=== PATIENT | male | born 1995 | race African-American/Black ===

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

== ENCOUNTER 2017-09-09 07:20 | Emergency (ER) | payer OTHER ==
[~2017-09-09] VITALS: Ht 180.3 cm; Wt 72.6 kg
[~2017-09-09 07:20] MED LIST changes: +TRAMADOL HCL50 M1 PO
--- NOTE | 2017-09-09 07:37 | ED GENERAL ADULT ---
History of Present Illness General Chief Complaint: Abdominal Pain/Flank Pain Stated Complaint: ABD PAIN Source: patient Exam Limitations: no limitations Vital Signs & Intake/Output Vital Signs & Intake/Output Vital Signs Date Time Temp Pulse Resp B/P B/P Pulse O2 O2 Flow FiO2 Mean Ox Delivery Rate 09/09 0907 98.8 60 18 124/68 97 Room Air 09/09 0822 Room Air 09/09 0724 96.6 73 15 124/74 95 Room Air Room Air Allergies Coded Allergies: No Known Allergies (09/09/17) Reconcile Medications Albuterol Sulfate (Proair Hfa) 90 MCG HFA.AER.AD 2 PUF INH Q4-6 PRN PRN SOB Ibuprofen 800 MG TABLET 1 TAB PO TID PRN PAIN Mometasone Furoate (Nasonex) 50 MCG SPRAY.PUMP 2 SPRAY NASB DAILY PRN CONGESTION Tramadol HCl 50 MG TABLET 1-2 TAB PO TID PRN PAIN TWENTY...[id number] Triage Note: PT TO ED FOR C/C OF DIFFUSE UPPER ABD PAIN WITH NAUSEA. PAIN IS WORSE AFTER EATING. DENIES DIARRHEA. Triage Nurses Notes Reviewed? yes Onset: Abrupt Duration: day(s): Timing: recent history HPI: 09/09/17 21-year-old male presents to the emergency department complaining of nausea, diarrhea, cough, and generalized abdominal pain. He says other family members are sick. He admits to nasal congestion. He denies vomiting. Past History Travel History Traveled to [place] past 21 day No Medical History Any Pertinent Medical History? 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 No Review of Systems Review of Systems Constitutional: Reports: fever. EENTM: Reports: nasal congestion. Respiratory: Reports: cough. Denies: short of breath. Cardiovascular: Denies: chest pain. GI: Reports: abdominal pain, diarrhea. Denies: vomiting. Genitourinary: Reports: no symptoms. Musculoskeletal: Reports: no symptoms. Skin: Denies: rash. Neurological/Psychological: Reports: no symptoms. Hematologic/Endocrine: Reports: no symptoms. Physical Exam Physical Exam General Appearance: well developed/nourished, alert, awake, anxious, moderate distress Head: atraumatic, normal appearance Eyes: Bilateral: normal appearance, PERRL, EOMI. Ears, Nose, Throat: normal pharynx, normal ENT inspection Neck: normal inspection, supple, full range of motion Respiratory: normal breath sounds, chest non-tender, no respiratory distress Cardiovascular: regular rate/rhythm Peripheral Pulses: 4+ radial (R), 4+ radial (L) Gastrointestinal: non-tender Back: normal range of motion Extremities: no edema Neurologic/Psych: no motor/sensory deficits, awake, alert, oriented x 3 Skin: intact, normal color, warm/dry Core Measures ACS in differential dx? No CVA/TIA Diagnosis: No Sepsis Present: No Sepsis Focused Exam Completed? No Progress Differential Diagnoses I considered the following diagnoses in my evaluation of the patient: Plan of Care: Orders Procedure Date/time Status Saline Lock 09/09 0749 Active HIGH SENSITIVITY CRP 09/09 0749 Complete COMPREHENSIVE METABOLIC PANEL 09/09 0749 Complete CBC WITHOUT DIFFERENTIAL 09/09 0749 Complete RAPID VIRAL INFLUENZA A 09/09 0737 Complete Laboratory Tests 09/09/17 0815: Anion Gap 10, Estimated GFR > 60, BUN/Creatinine Ratio 17.5, Glucose 92, Calcium 9.8, Total Bilirubin 0.6, AST 19, ALT 24, Alkaline Phosphatase 53, C-React Prot High Sens 0.3 L, Total Protein 6.9, Albumin 4.4, Globulin 2.5, Albumin/Globulin Ratio 1.8, CBC w Diff NO MAN DIFF REQ, RBC 4.92, MCV 89.0, MCH 30.0, MCHC 33.7, RDW 13.7, MPV 9.1, Gran % 64.0, Lymphocytes % 25.0, Monocytes % 6.8, Eosinophils % 3.5, Basophils % 0.7, Absolute Granulocytes 3.6, Absolute Lymphocytes 1.4, Absolute Monocytes 0.4, Absolute Eosinophils 0.2, Absolute Basophils 0 Microbiology 09/09 0804 NASOPHARYN: Influenza Virus A & B Rapid Smear - COMP Initial ED EKG: none Departure Departure Disposition: HOME OR SELF CARE Condition: Stable Clinical Impression Primary Impression: Abdominal pain Secondary Impressions: Viral syndrome Referrals: Thaddeus ARAMBULA,Sean C. (PCP/Family) Departure Forms: Customer Survey General Discharge Information Comments 09/09/17 The patient's labs are completely unremarkable. His abdomen is soft and nontender. He likely has a viral syndrome. Discharge exclusion was given for appendicitis, he will return to the emergency department if his abdominal pain returns. Critical Care Note Critical Care Note Critical Care Time: non-applicable
[2017-09-09 08:37] LABS: ABSOLUTE BASOPHIL COUNT 0 /CUMM (0.0-0.2); ABSOLUTE EOSINOPHIL COUNT 0.2 /CUMM (0.0-0.7); ABSOLUTE GRANULOCYTE CT 3.6 /CUMM (1.4-6.5); ABSOLUTE LYMPH COUNT 1.4 /CUMM (1.2-3.4); ABSOLUTE MONOCYTE COUNT 0.4 /CUMM (0.10-0.60); BASOPHIL % 0.7 % (0.0-2.0); EOSINOPHIL % 3.5 % (0-5); HEMATOCRIT 43.8 % (42-52); MEAN CORPUSCULAR HGB CONC 33.7 G/DL (33.0-37.0); MEAN PLATELET VOLUME 9.1 FL (7.4-10.4); PLATELET COUNT 203 /CUMM (130-400); RBC DISTRIBUTION WIDTH 13.7 % (11.5-14.5); RED BLOOD CELL CT 4.92 /CUMM (4.70-6.10); WHITE BLOOD CELL COUNT 5.6 /CUMM (4.8-10.8)
[2017-09-09 09:07] VITALS: BP 124/68
== END 2017-09-09 09:45 ==
LOC: ERH 07:20
PROVIDERS: Emergency Medicine
DX: B34.9 Viral infection, unspecified (principal); R10.84 Generalized abdominal pain
CPT/HCPCS: 87804; 87804-59

== ENCOUNTER 2017-11-09 20:57 | Emergency (ER) | payer OTHER ==
[~2017-11-09] VITALS: Ht 180.3 cm; Wt 72.6 kg
[2017-11-09 21:07] VITALS: BP 129/80
--- NOTE | 2017-11-09 21:10 | ED THROAT/DENTAL COMPLAINT ---
History of Present Illness General Chief Complaint: General Adult Stated Complaint: "SINUS INFECTION" Source: patient Exam Limitations: no limitations Vital Signs & Intake/Output Vital Signs & Intake/Output Vital Signs Date Time Temp Pulse Resp B/P B/P Pulse O2 O2 Flow FiO2 Mean Ox Delivery Rate 11/09 2107 99.9 79 18 129/80 97 Room Air Allergies Coded Allergies: No Known Allergies (09/09/17) Reconcile Medications Albuterol Sulfate (Proair Hfa) 90 MCG HFA.AER.AD 2 PUF INH Q4-6 PRN PRN SOB Ibuprofen 800 MG TABLET 1 TAB PO TID PRN PAIN Mometasone Furoate (Nasonex) 50 MCG SPRAY.PUMP 2 SPRAY NASB DAILY PRN CONGESTION Tramadol HCl 50 MG TABLET 1-2 TAB PO TID PRN PAIN TWENTY...[id number] Triage Nurses Notes Reviewed? yes HPI: 21M no PMH, non-smoker, presents with 3 days of sore throat, maxillary and frontal sinus congestion and pain bilaterally, right ear discomfort. Symptoms started gradually and have been worsening, took allergy medication with no benefit. Denies fever, chills, headache, neck stiffness, photophobia, chest pain, SOB, cough, abdominal pain, diarrhea, dysuria. No sick contacts or recent travel. Otherwise no complaints. Past History Travel History Traveled to [place] past 21 day No Medical History Any Pertinent Medical History? 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 No Review of Systems Review of Systems Constitutional: Reports: no symptoms. EENTM: Reports: no symptoms. Respiratory: Reports: no symptoms. Cardiovascular: Reports: no symptoms. GI: Reports: no symptoms. Genitourinary: Reports: no symptoms. Musculoskeletal: Reports: no symptoms. Skin: Reports: no symptoms. Neurological/Psychological: Reports: no symptoms. Hematologic/Endocrine: Reports: no symptoms. Immunologic/Allergic: Reports: no symptoms. All Other Systems: Reviewed and Negative Physical Exam Physical Exam General Appearance: well developed/nourished, no apparent distress Head: atraumatic, normal appearance Eyes: Bilateral: normal appearance, PERRL, EOMI. Ears: Left: canal normal, Tympanic normal. Right: erythema, swelling. Nose: normal inspection Mouth/Throat: normal mouth inspection, pharynx swelling, pharynx tenderness Neck: normal inspection, supple, full range of motion Cardiovascular/Respiratory: normal breath sounds, regular rate/rhythm Back: normal inspection Neurologic/Psych: awake, alert, oriented x 3, normal mood/affect Skin: intact, normal color, warm/dry Core Measures ACS in differential dx? No Sepsis Present: No Sepsis Focused Exam Completed? No Progress Differential Diagnosis: aspirated tooth, carious tooth, epiglottitis, Ludwigs angina, meningitis, odontogenic abscess, james-tonsillar abscess, pharyngeal for. body, stomatitis/gingivitis, strep pharyngitis, tooth fracture Plan of Care: Orders Procedure Date/time Status RAPID VIRAL INFLUENZA A 11/09 2108 Complete THROAT CULTURE W/QUICK STREP 11/09 2108 Active Microbiology 11/09 2109 NASOPHARYN: Influenza Virus A & B Rapid Smear - COMP Rapid strep and flu negative. Given fever, pharyngeal swelling, cervical lymphadenopathy, and absence of cough, will treat with Augmentin. Departure Departure Disposition: HOME OR SELF CARE Condition: Stable Clinical Impression Primary Impression: Acute sinusitis Secondary Impressions: Acute pharyngitis Referrals: Thaddeus ARAMBULA,Sean Malcolm Additional Instructions: Follow up with your PCP. Drink plenty of water. If you notice worsening of throat pain or swelling, neck stiffness, sensitivity to light, confusion, high fever, or any new or worsening symptom, return to ER. Departure Forms: Customer Survey General Discharge Information Prescriptions: Current Visit Scripts Amoxicillin/Clavulanate Potass (Amox-Clav 875-125 MG Tablet) 1 TAB PO BID #20 TAB
[2017-11-09] MEDS ORDERED: AMOX-CLAV 875-1 EACH PO (22:07)
== END 2017-11-09 22:18 ==
LOC: ERH 20:57
DX: J01.90 Acute sinusitis, unspecified (principal); J02.9 Acute pharyngitis, unspecified
CPT/HCPCS: 87804; 87804-59

== ENCOUNTER 2018-03-11 19:43 | Emergency (ER) | payer OTHER ==
[~2018-03-11] VITALS: Ht 180.3 cm; Wt 72.6 kg
[~2018-03-11 19:43] MED LIST changes: +AMOX-CLAV 875-1 EACH PO
--- NOTE | 2018-03-11 20:56 | ED CARDIAC/CP/PALPITATIONS ---
History of Present Illness General Chief Complaint: Chest Pain Stated Complaint: "CHEST PAINS" Source: patient Exam Limitations: no limitations Vital Signs & Intake/Output Vital Signs & Intake/Output Vital Signs Date Time Temp Pulse Resp B/P B/P Pulse O2 O2 Flow FiO2 Mean Ox Delivery Rate 03/117 98.7 74 18 122/74 99 Room Air 03/117 98 03/11 1953 98.6 72 18 115/70 97 Room Air ED Intake and Output 03/12 0000 03/11 1200 Intake Total 0 Output Total Balance 0 Intake, Oral 0 Patient 160 lb Weight Weight Reported by Patient Measurement Method Allergies Coded Allergies: No Known Allergies (09/09/17) Reconcile Medications Albuterol Sulfate (Proair Hfa) 90 MCG HFA.AER.AD 2 PUF INH Q4-6 PRN PRN SOB Amoxicillin/Clavulanate Potass (Amox-Clav 875-125 MG Tablet) 875 MG-125 MG TABLET 1 TAB PO BID ACUTE PHARYNGITIS Azithromycin (Zithromax) 250 MG TABLET 1 DP PO AD SINUSITIS 2 the first day followed by 1 for days 2-5 Ibuprofen 800 MG TABLET 1 TAB PO TID PRN PAIN Mometasone Furoate (Nasonex) 50 MCG SPRAY.PUMP 2 SPRAY NASB DAILY PRN CONGESTION Tramadol HCl 50 MG TABLET 1-2 TAB PO TID PRN PAIN TWENTY...[id number] Triage Note: PT TO TRIAGE C/O CHEST PRESSURE, NASAL CONGESTION AND NONPRODUCTIVE COUGH X1 DAY. PT STATES PAIN IS WORSE WITH INSPIRATION. Triage Nurses Notes Reviewed? yes HPI: Pt is a 22 y/o M PMHx seasonal allergies presenting with nasal congestion, lacrimation, non-productive cough x 3 days. Pt states that symptoms began with nasal congestion on Sunday. This morning Pt woke up with difficulty breathing, complains that he felt like there was a weight on his chest. Pt states pain is not constant. Pt states he is currently having difficulty taking a deep breath. Pt attempted tums and ibuprofen without relief. Pt admits that his niece has hand, foot & mouth disease. Pt admits that symptoms are similar to those he gets with the change of season. Pt denies radiation of chest pain, dizziness, lightheadedness, recent travel, smoking, history of asthma, fevers, chills. Past History Travel History Traveled to [place] past 21 day No Medical History Any Pertinent Medical History? 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 No Review of Systems Review of Systems Constitutional: Denies: see HPI. EENTM: Reports: see HPI. Respiratory: Reports: see HPI. Cardiovascular: Reports: see HPI. GI: Denies: see HPI. Genitourinary: Reports: no symptoms. Musculoskeletal: Reports: no symptoms. Skin: Reports: no symptoms. Neurological/Psychological: Reports: no symptoms. Hematologic/Endocrine: Reports: no symptoms. Immunologic/Allergic: Reports: see HPI. All Other Systems: Reviewed and Negative Physical Exam Physical Exam General Appearance: well developed/nourished, no apparent distress Head: atraumatic, normal appearance Eyes: Bilateral: normal appearance, PERRL, EOMI (Clear bilat lacrimation). Ears, Nose, Throat: normal pharynx, normal ENT inspection Neck: normal inspection, supple, full range of motion Respiratory: normal breath sounds, lungs clear Cardiovascular: regular rate/rhythm, NMRG Peripheral Pulses: 2+ radial (R), 2+ radial (L) Gastrointestinal: normal bowel sounds, soft, non-tender, no organomegaly Back: normal inspection Extremities: normal inspection, normal capillary refill, normal range of motion, no edema Neurologic/Psych: no motor/sensory deficits, awake, alert, oriented x 3, normal gait, normal mood/affect Skin: intact, normal color, warm/dry Core Measures ACS in differential dx? No CVA/TIA Diagnosis No Sepsis Present: No Sepsis Focused Exam Completed? Yes Progress Differential Diagnosis: AMI, aortic dissection, cholecystitis, costochondritis, musculoskeletal pain, myocarditis, pericarditis, pneumonia Plan of Care: Orders Procedure Date/time Status EKG 03/11 1950 Active Diagnostic Imaging: Viewed by Me: Radiology Read. Discussed w/RAD: Radiology Read. CXR Impression: PATIENT: COLTON DUBOSE PRESENT AGE: 22 PATIENT ACCOUNT NO: [id number] : 97 LOCATION: [facility] ORDERING PHYSICIAN: Preet Rutherford MD SERVICE DATE: 03/11/18 EXAM TYPE: RAD - XRY-CHEST XRAY, TWO VIEWS EXAMINATION: XR CHEST CLINICAL INFORMATION: Productive cough with chest pain COMPARISON: None TECHNIQUE: 2 views of the chest were obtained. FINDINGS: No significant abnormality is noted involving the heart, lungs, mediastinum, bony thorax or soft tissues. IMPRESSION: Unremarkable examination. DICTATED BY: Efrain Diaz MD DATE/TIME DICTATED:03/11/182129 B[employer] PL[employer] HAND:OMAR DATE/TIME TRANSCRIBED:03/11/182129 CONFIDENTIAL, DO NOT COPY WITHOUT APPROPRIATE AUTHORIZATION. <Electronically signed in Other Vendor System> SIGNED BY: Efrain Diaz MD 03/11/182133 Initial ED EKG: NSR, no ST T wave changes Departure Departure Disposition: HOME OR SELF CARE Condition: Stable Clinical Impression Primary Impression: Sinusitis Referrals: Patient Has No Primary Care Dr (PCP/Family) Additional Instructions: USE FLONASE TAKE ANTIBIOTIC PRESCRIBED RETURN IF SYMPTOMS WORSEN OR FOR ANY CONCERNS Departure Forms: Customer Survey General Discharge Information Prescriptions: Current Visit Scripts Azithromycin (Zithromax) 1 DP PO AD #6 TAB 2 the first day followed by 1 for days 2-5 Critical Care Note Critical Care Note Critical Care Time: non-applicable
--- NOTE | 2018-03-11 21:34 | RADIOLOGY REPORT ---
EXAMINATION: XR CHEST CLINICAL INFORMATION: Productive cough with chest pain COMPARISON: None TECHNIQUE: 2 views of the chest were obtained. FINDINGS: No significant abnormality is noted involving the heart, lungs, mediastinum, bony thorax or soft tissues. IMPRESSION: Unremarkable examination.
[2018-03-11] MEDS ORDERED: ZITHROMAX250 M2 PO (21:56)
[2018-03-11 22:07] VITALS: BP 122/74
== END 2018-03-11 22:09 ==
LOC: ERH 19:43
DX: J32.9 Chronic sinusitis, unspecified (principal); R06.00 Dyspnea, unspecified
CPT/HCPCS: 1263; 1395; 71046; 93005; 93010